=== PATIENT | female | born 1980 | race Caucasian/White ===

== ENCOUNTER 2019-02-07 17:26 | Emergency (ER) | payer SELFPAY ==
[~2019-02-07] VITALS: Ht 157.5 cm; Wt 54.1 kg
[2019-02-07 17:48] VITALS: Ht 157.5 cm; Wt 54.1 kg
[2019-02-07] MEDS ORDERED: ACETAMINOPHEN 325 MG TAB PO STA (19:53)
--- NOTE | 2019-02-07 20:18 | ERD ---
ER Documentation Chief Complaint Chief Complaint pelvic pain X 2 days, 8 wks HPI This is a 38-year-old female who presents at roughly 7 weeks with complaints of lower pelvic pain times 3 days. Patient states that the pain comes and goes. Patient states that she was recently seen in a another hospital on 01-26-19 for severe pelvic pain was diagnosed with a UTI. Patient was started on Macrobid and finish the full course of antibiotics. Patient states that this pain today is not as severe as the pain is last time. Patient admits to nausea. Denies fever, chills, dysuria, hematuria, vomiting, hematemesis, melena, hematochezia, vaginal discharge, vaginal pain, vaginal bleeding and passing clots. ROS All systems reviewed and are negative except as per history of present illness. Medications Home Meds No Active Prescriptions or Reported Meds Allergies Allergies: Coded Allergies: No Known Allergy (Unverified , 02/07/19) PMhx/Soc Medical and Surgical Hx: pt denies Medical Hx, pt denies Surgical Hx History of Surgery: No Anesthesia Reaction: No Hx Neurological Disorder: No Hx Respiratory Disorders: No Hx Cardiac Disorders: No Hx Psychiatric Problems: No Hx Miscellaneous Medical Probl: No Hx Alcohol Use: Yes (socially) Hx Substance Use: No Hx Tobacco Use: No Smoking Status: Never smoker FmHx Family History: No diabetes Physical Exam Vitals Vital Signs Date Temp Pulse Resp B/P (MAP) Pulse Ox O2 O2 Flow FiO2 Time Delivery Rate 02/07/19 99.0 82 18 113/72 99 17:48 (86) Physical Exam Physical Exam Vitals signs: Reviewed by me. General: Well developed, well nourished, in no acute distress. Patient is awake and alert. Head: Normocephalic, atraumatic. Eyes: Normal conjunctiva, Pupils PERRLA, EOM intact grossly ENT: Pharynx is clear, Moist mucous membranes, external ears, nose and mouth normal Neck: Supple, no masses, lymphadenopathy or JVD Respiratory: Clear to auscultation bilaterally with no wheezing, rhonchi, rales, no distress Cardiovascular: RRR, no murmurs, rubs, or gallops Abdominal: Soft, nondistended, no peritoneal signs, no rigidity, no surgical abdomen, bowel sounds present all 4 quadrants, mild suprapubic tenderness, nontender light deep palpation all other areas of abdomen, McBurney's point nontender, no rebound tenderness Neurologic: Alert and oriented, moving all extremities, normal speech, no focal weakness, no cerebellar signs. Normal mentation Skin: warm and dry, No rash Psych: Normal mood Result Diagram: 02/07/19201102/07/192011 Results 24 hrs Laboratory Tests Test 02/07/19 20:12 White Blood Count 7.2 10^3/ul Red Blood Count 4.60 10^6/ul Hemoglobin 13.8 g/dl Hematocrit 41.9 % Mean Corpuscular Volume 91.1 fl Mean Corpuscular Hemoglobin 30.0 pg Mean Corpuscular Hemoglobin Concent 32.9 g/dl Red Cell Distribution Width 13.4 % Platelet Count 237 10^3/UL Mean Platelet Volume 11.1 fl Immature Granulocytes % 0.300 % Neutrophils % 63.8 % Lymphocytes % 26.9 % Monocytes % 6.9 % Eosinophils % 1.4 % Basophils % 0.7 % Nucleated Red Blood Cells % 0.0 /100WBC Immature Granulocytes # 0.020 10^3/ul Neutrophils # 4.6 10^3/ul Lymphocytes # 2.0 10^3/ul Monocytes # 0.5 10^3/ul Eosinophils # 0.1 10^3/ul Basophils # 0.1 10^3/ul Nucleated Red Blood Cells # 0.0 10^3/ul Urine Color YELLOW Urine Clarity SLIGHTLY CLOUDY Urine pH 6.0 Urine Specific [place] 1.016 Urine Ketones 1+ mg/dL Urine Nitrite NEGATIVE mg/dL Urine Bilirubin NEGATIVE mg/dL Urine Urobilinogen NEGATIVE mg/dL Urine Leukocyte Esterase NEGATIVE Vero/ul Urine Microscopic RBC 1 /HPF Urine Microscopic WBC 1 /HPF Urine Squamous Epithelial Cells FEW /HPF Urine Bacteria FEW /HPF Urine Hemoglobin NEGATIVE mg/dL Urine Glucose NEGATIVE mg/dL Urine Total Protein NEGATIVE mg/dl Sodium Level 138 mmol/L Potassium Level 3.6 mmol/L Chloride Level 99 mmol/L Carbon Dioxide Level 24 mmol/L Anion Gap 15 Blood Urea Nitrogen 12 mg/dl Creatinine 0.38 mg/dl Est Glomerular Filtrat Rate mL/min > 60 mL/min Glucose Level 90 mg/dl Calcium Level 9.7 mg/dl Total Bilirubin 0.1 mg/dl Direct Bilirubin 0.00 mg/dl Indirect Bilirubin 0.1 mg/dl Aspartate Amino Transf (AST/SGOT) 23 IU/L Alanine Aminotransferase (ALT/SGPT) 14 IU/L Alkaline Phosphatase 47 IU/L Total Protein 8.4 g/dl Albumin 4.8 g/dl Globulin 3.60 g/dl Albumin/Globulin Ratio 1.33 Beta HCG, Quantitative 23073.0 mIU/ml Current Medications Medications Dose Sig/Toshia Start Time Status Last (Trade) Ordered Route PRN Stop Time Admin Dose Reason Admin 650 mg ONCE STAT 02/07/19 DC 02/07/19 Acetaminophen PO 19:53 02/07/19 20:15 (Tylenol 19:55 Tab) Procedures/MDM EKG, MONITORS, & DIAGNOSTIC IMAGING: [place] [address] Radiology Main Line: [phone] DIAGNOSTIC IMAGING REPORT Patient: MARIANNE CASTILLO : 1980 Age: 38 Sex: F MR #: [id number] DOS: 02/07/191952 Ordering MD: SARAH NORMAN PA-C Location: FT Room/Bed: PROCEDURE: US OB. CLINICAL INDICATION: Vaginal bleeding in early . TECHNIQUE: Transabdominal and transvaginal views of the pelvis are available for review. COMPARISON: No prior studies are available for comparison. FINDINGS: A single mildly irregular intrauterine gestational sac is evident. A yolk sac is not evident. There appears to be a possible ovoid leiomyoma in the uterine wall, measuring 3.6 cm in long axis. There are small Nabothian cysts in the cervix. [place] length: No visible fetus Gestational sac diameter: 2.0 cm heart rate: No visible fetus Ultrasound estimated gestational age: 6 weeks 6 days by gestational sac size No ovarian or adnexal mass lesion is seen. There is no free fluid. There is probably a hypovascular corpus luteum in the left ovary. . IMPRESSION: 1. Nonviable intrauterine gestation with an estimated age of 6 weeks 6 days. RPTAT:AAJJ Physician Sandra Date Time Electronically viewed and signed by Physician Sandra on 02/07/2019 20:59 GW/ CC: SARAH NORMAN PA-C [phone] LAB INTERPRETATION: Interpretation text CBC shows no evidence of hemorrhage or infection Chemistry shows no evidence of significant electrolyte abnormalities or renal insufficiency Liver function test shows no evidence of acute biliary or hepatic dysfunction HCG 59703.0 Urinalysis shows 1 microscopic WBC 1 RBC and no leukocyte esterase and no nitrite Blood type B+ ER COURSE: The patient was given Tylenol The medication was well tolerated and the patient reports improvement in symptoms. The patient was stable throughout ED course. I kept the patient and/or family informed of laboratory and diagnostic imaging results throughout the emergency room course. The patient was promptly evaluated and a treatment plan was devised based on H&P and other data. This plan was discussed with the patient who agreed and had no further questions or concerns prior to discharge. MEDICAL DECISION MAKING: This is a 38-year-old female who presents at roughly 8 weeks with complaints of pelvic pain times 2 days. Ultrasound shows a nonviable intrauterine gestation with an estimated age of 6 weeks and 6 days. I discussed with patient that this is likely nonviable and she will need to follow-up with her OB to discuss options of possible elective to remove the gestational sac from uterus. Ectopic not visualized. Patient does not require any rhogam. She is hemodynamically stable. No evidence of ectopic , tubo-ovarian abscess, ovarian torsion, intracranial hemorrhage, appendicitis, small bowel obstruction, perforated viscus among others. At this time there is no [facility] emergency. Advised to return to ER with any worsening symptoms. DISPOSITION PLAN: We discussed follow up with the patient's primary care doctor within 24 to 48 hours. Patient counseled regarding my diagnostic impression and care plan. Prior to discharge all questions answered. Pt agrees with treatment plan and understands strict return precautions. Precautionary instructions provided including instructions to return to the ER if not improving or for any worsening or changing symptoms or concerns. SPECIALIST FOLLOW UP RECOMMENDED: None Patient has been advised to follow up with primary care in 1-2 days. Disclaimer: Inadvertent spelling and grammatical errors are likely due to EHR/dictation software use and do not reflect on the overall quality of patient care. Also, please note that the electronic time recorded on this note does not necessarily reflect the actual time of the patient encounter. Departure Diagnosis: Primary Impression: Non-viable Condition: Stable Patient Instructions: Missed Miscarriage, Possible Miscarriage (Threatened ) Referrals: [facility] REFERRAL LIST Additional Instructions: Follow-up with your OB doctor tomorrow. Patient advised to return to the ED immediately for new or worsening symptoms. Patient advised to follow up with primary care provider in the next 24-48 hours. Patient verbalized understanding and agrees with treatment plan and course of action. If patient has no primary care they may follow up with one of the community clinics listed on the following page or one of the options listed below [facility] + [facility] [address] [place] [address] or [facility] [id number] [place] [address] or [facility] [address] [place] [address] SARAH NORMAN PA-C Feb 07, 2019 20:18
[2019-02-07 21:53] VITALS: BP 122/71; PULSE 80; RESP 18
== END 2019-02-07 21:54 | disposition home or self-care (01) ==
LOC: FTE 17:26
DX: O36.80X0 Pregnancy with inconclusive fetal viability, not applicable or unspecified (principal); R10.2 Pelvic and perineal pain; Z3A.01 Less than 8 weeks gestation of pregnancy
CPT/HCPCS: 36415; 76801; 76817; 80053; 81001; 81003; 84702; 85025; 86900; 86901

== ENCOUNTER 2019-02-21 12:52 | Emergency (ER) | payer SELFPAY ==
[~2019-02-21] VITALS: Ht 157.5 cm; Wt 54.2 kg
[2019-02-21 13:13] VITALS: BP 114/66; PULSE 74; RESP 16; Ht 157.5 cm; Wt 54.2 kg
--- NOTE | 2019-02-23 21:13 | ERD ---
ER Documentation Chief Complaint Chief Complaint WANTS TO CHECK IF SHE IS , REQUESTING ULTRASOUND HPI History of Present Illness: 38-year-old female with no past medical history coming in today with complaint of desires to have an ultrasound. Patient reports coming to [facility] emergency department a couple weeks ago for which she was told that she was likely having a miscarriage due to no heartbeat noted on ultrasound. Patient reports she is still having symptoms including tender breasts and nausea. Patient denies any other associated symptoms At home pharmacological/nonpharmacological treatment for symptoms: Denies Denies social concerns; Denies recent foreign travel ROS All systems reviewed and are negative except as per history of present illness. Medications Home Meds No Active Prescriptions or Reported Meds Allergies Allergies: Coded Allergies: No Known Allergy (Unverified , 02/07/19) PMhx/Soc Medical and Surgical Hx: pt denies Medical Hx, pt denies Surgical Hx History of Surgery: No Anesthesia Reaction: No Hx Neurological Disorder: No Hx Respiratory Disorders: No Hx Cardiac Disorders: No Hx Psychiatric Problems: No Hx Miscellaneous Medical Probl: No Hx Alcohol Use: Yes (socially) Hx Substance Use: No Hx Tobacco Use: No Smoking Status: Never smoker FmHx Family History: No coronary disease Physical Exam Vitals Vital Signs Date Temp Pulse Resp B/P (MAP) Pulse Ox O2 O2 Flow FiO2 Time Delivery Rate 02/21/19 99.6 74 16 114/66 100 13:13 (82) Physical Exam Const: No acute distress Head: Atraumatic Eyes: Normal Conjunctiva ENT: Normal External Ears, Nose and Mouth. Neck: Full range of motion. No meningismus. Resp: Clear to auscultation bilaterally Cardio: Regular rate and rhythm, no murmurs Abd: Soft, non tender, non distended. Normal bowel sounds Skin: No petechiae or rashes Back: No midline or flank tenderness Ext: No cyanosis, or edema Neur: Awake and alert Psych: Normal Mood and Affect Result Diagram: 02/21/19 1451 Results 24 hrs Laboratory Tests Test 02/21/19 14:48 02/21/19 14:51 Urine Color YELLOW Urine Clarity CLEAR Urine pH 7.0 Urine Specific [place] 1.015 Urine Ketones NEGATIVE mg/dL Urine Nitrite NEGATIVE mg/dL Urine Bilirubin NEGATIVE mg/dL Urine Urobilinogen NEGATIVE mg/dL Urine Leukocyte Esterase NEGATIVE Vero/ul Urine Hemoglobin NEGATIVE mg/dL Urine Glucose NEGATIVE mg/dL Urine Total Protein NEGATIVE mg/dl White Blood Count 7.4 10^3/ul Red Blood Count 4.44 10^6/ul Hemoglobin 13.4 g/dl Hematocrit 40.0 % Mean Corpuscular Volume 90.1 fl Mean Corpuscular Hemoglobin 30.2 pg Mean Corpuscular Hemoglobin Concent 33.5 g/dl Red Cell Distribution Width 13.4 % Platelet Count 213 10^3/UL Mean Platelet Volume 11.1 fl Immature Granulocytes % 0.100 % Neutrophils % 68.0 % Lymphocytes % 23.7 % Monocytes % 6.2 % Eosinophils % 1.2 % Basophils % 0.8 % Nucleated Red Blood Cells % 0.0 /100WBC Immature Granulocytes # 0.010 10^3/ul Neutrophils # 5.0 10^3/ul Lymphocytes # 1.8 10^3/ul Monocytes # 0.5 10^3/ul Eosinophils # 0.1 10^3/ul Basophils # 0.1 10^3/ul Nucleated Red Blood Cells # 0.0 10^3/ul Beta HCG, Quantitative 18314.0 mIU/ml Procedures/MDM ED course includes a thorough examination and history. Medications: -- Imaging: OB vaginal and abdominal ultrasound Labs: CBC, beta quantitative, urinalysis Low suspicion for life-threatening medical emergency. Low suspicion for acute abdominal or gynecologic emergency requires hospitalization or surgical intervention. Patient without any signs of vaginal bleeding. Patient denies pain. Otherwise healthy patient presenting with constellation of symptoms likely representing missed as characterized by history, physical exam findings, lab findings and imaging findings. Urinalysis negative for infection. CBC: no e/o of systemic infection or severe anemia . beta quantitative has decreased since last visit to [facility] emergency department. Ultr asound results revealing: IMPRESSION: Cystic structure consistent with a gestational age at 6 weeks and 6 days. No pole or yolk sac is yet visualized. No significant interval growth since the prior study. The findings are consistent with a nonviable . .Alessandro Yusuf MD, MD No respiratory distress, otherwise relatively well appearing and nontoxic. Patient verbalizes understanding of instructions to follow-up with hansard reporter for administration of medications to induce a miscarriage . patient educated on diagnoses, prescriptions, follow-up care, return precautions. Strict return precautions given for worsening condition; questions answered discharge. Disposition for discharge with followup in 2 days with PCP/clinic; preferably [facility]. Departure Diagnosis: Primary Impression: Missed Condition: Stable Patient Instructions: Missed Miscarriage Referrals: [facility] YOU HAVE RECEIVED A MEDICAL SCREENING EXAM AND THE RESULTS INDICATE THAT YOU DO NOT HAVE A CONDITION THAT REQUIRES URGENT TREATMENT IN THE EMERGENCY DEPARTMENT. FURTHER EVALUATION AND TREATMENT OF YOUR CONDITION CAN WAIT UNTIL YOU ARE SEEN IN YOUR DOCTORS OFFICE WITHIN THE NEXT 1-2 DAYS. IT IS YOUR RESPONSIBILITY TO MAKE AN APPOINTMENT FOR FOLOW-UP CARE. IF YOU HAVE A PRIMARY DOCTOR --you should call your primary doctor and schedule an appointment IF YOU DO NOT HAVE A PRIMARY DOCTOR YOU CAN CALL OUR PHYSICIAN REFERRAL HOTLINE AT IF YOU CAN NOT AFFORD TO SEE A PHYSICIAN YOU CAN CHOSE FROM THE FOLLOWING [facility] [address] [facility] [email or web address] [facility]. [facility] [address] [facility] [address] [facility] [address] [facility] [address] [facility]. [facility]. [address] [facility]. [facility] YOU HAVE RECEIVED A MEDICAL SCREENING EXAM AND THE RESULTS INDICATE THAT YOU DO NOT HAVE A CONDITION THAT REQUIRES URGENT TREATMENT IN THE EMERGENCY DEPARTMENT. FURTHER EVALUATION AND TREATMENT OF YOUR CONDITION CAN WAIT UNTIL YOU ARE SEEN IN YOUR DOCTORS OFFICE WITHIN THE NEXT 1-2 DAYS. IT IS YOUR RESPONSIBILITY TO MAKE AN APPOINTMENT FOR FOLOW-UP CARE. IF YOU HAVE A PRIMARY DOCTOR --you should call your primary doctor and schedule and appointment IF YOU DO NOT HAVE A PRIMARY DOCTOR YOU CAN CALL OUR PHYSICIAN REFERRAL HOTLINE AT . IF YOU CAN NOT AFFORD TO SEE A PHYSICIAN YOU CAN CHOSE FROM THE FOLLOWING [facility]: [facility] [address] [place] [address] [facility] [address] [place] [address] [facility] [address] [place] [address] [facility] [place] [address] [facility] [address] [place] [address] OFFICE FAX , [place] [address] [place] [address] [address] RUSSELL, [place] [address] [place] [address] [address] LYNN, [facility] [address] [facility], [address], [facility] [address] [address], [facility] [address] [place] [address] [facility] [address] [place] [address] [facility], [facility] [address] - [place] [address], [facility] [address] [address] RUIZ, [place] [address] [facility], [facility] [address] [address] [facility] [address] [place], [place] [id number] Additional Instructions: Thank you very much for allowing us to participate in your care. Your health and safety is our top priority at [facility]. It is important to read all discharge instructions and education provided in your discharge packet. Call your primary care doctor TOMORROW for an appointment during the next 2-4 days and bring all the information. If the symptoms get worse and your provider is unavailable, return to the Emergency Department immediately. AMAURI VALENTIN NP Feb 23, 2019 21:13
== END 2019-02-21 17:08 | disposition home or self-care (01) ==
LOC: FTE 12:52
DX: O02.1 Missed abortion (principal)
CPT/HCPCS: 36415; 76801; 81003; 84702; 85025